=== PATIENT | male | born 1965 | race Caucasian/White ===

== ENCOUNTER 2017-02-05 21:31 | Emergency (ER) | payer SELFPAY ==
[~2017-02-05] VITALS: Ht 193 cm; Wt 118.2 kg
[2017-02-05] MEDS ORDERED: MORPHINE SULFATE 4 MG/ML, 1ML ONE (23:49)
[2017-02-05] MEDS ORDERED: ONDANSETRON 2MG/ML, 2ML ONE (23:49)
[2017-02-05 23:54] VITALS: BP 157/103
[2017-02-05] MEDS ORDERED: INSU100C SQ-INSULIN (23:55)
[2017-02-05] MEDS ORDERED: METF850T2 PO (23:55)
[2017-02-05 23:58] LABS: PATH.CAST-FLAG NOT PRESENT; SPERM-FLAG NOT PRESENT; SRC-FLAG NOT PRESENT; XTAL-FLAG NOT PRESENT; YLC-FLAG NOT PRESENT
[2017-02-06] MEDS ORDERED: MORPHINE SULFATE 4 MG/ML, 1ML IVPush PRN
[2017-02-06] MEDS ORDERED: ONDANSETRON 2MG/ML, 2ML IVPush ONE
[2017-02-06] MEDS ORDERED: SODIUM CHLORIDE FLUSH 10ML SYR IVF ONE
[2017-02-06] MEDS ORDERED: SODIUM CHLORIDE 0.9% 1,000ML IVBOLUS ONE
[2017-02-06 00:13] LABS: ASPARTATE AMINO TRANSFERASE 12 U/L (15-37); BLOOD UREA NITROGEN 29 mg/dL (7-18)
[2017-02-06] MEDS ORDERED: LIDOCAINE 1%, 20ML ONE (03:21)
[2017-02-06] MEDS ORDERED: OXYMETAZOLINE NASAL SPRAY 0.05%, 15ML ONE (05:22)
== END 2017-02-06 07:35 | disposition home or self-care (01) ==
LOC: ED 02-06 02:45
DX: R10.33 Periumbilical pain (principal); R11.0 Nausea; E11.9 Type 2 diabetes mellitus without complications
CPT/HCPCS: 36415; 74020; 80053; 81001; 83605; 83690; 85025; 96361; 96374; 96375; 99285; J2405; J7030